=== PATIENT | male | born 1940 | race Caucasian/White ===

== ENCOUNTER → 2019-05-16 | Outpatient (CLI) | payer OTHER, MEDICARE ==
[~2019-05-16] VITALS: Ht 175.3 cm; Wt 84.8 kg
[~2019-05-16] MED LIST: APIX5TAB PO; ASPI-404 PO; ATOR40TA52 PO; DICL1GEL35 TD; DOCU250C3 PO; FLUT50SP31; GABA100C9 PO; INSU100I24 SC; INSUINJ2 SC; KETO0.4S LEFTEYE; LIDO5CRE14 EX; LORA-622 PO; LOSA25TA38 PO; METO100T87 PO; OMEG120015 PO; OXYC-904 PO; PANT40TA2 PO; PRED1SUS4 LEFTEYE; SILD100T57 PO; SOTA80TA PO
[2019-05-16 15:42] LABS: Basophils # (auto) 0.1 uL; Basophils % (auto) 0.9 % (0.0-2.0); Eosinophils # (auto) 0.1 uL; Eosinophils % (auto) 1.4 % (0.0-7.0); Hematocrit 42.3 % (41.0-53.0); Hemoglobin 14.4 g/dL (13.5-17.5); Lymphocytes # (auto) 2.8 uL; Lymphocytes % (auto) 31.6 % (10.0-50.0); Mean Corpuscular Hemoglobin 31.3 pg (28.0-32.0); Mean Corpuscular Hgb Conc. 33.9 g/dL (32.0-36.0); Mean Corpuscular Volume 92.3 fL (80.0-100.0); Monocytes # (auto) 0.5 uL; Monocytes % (auto) 5.2 % (0.0-12.0); Neutrophils # (auto) 5.3 uL; Neutrophils % (auto) 60.9 % (37.0-80.0); Platelet Count (auto) 184 10^3/uL (140-450); Red Blood Cells 4.59 10^6/uL (4.5-5.90); Red Cell Distribution Width 13.9 % (11.8-14.3); White Blood Cell 8.7 10^3/uL (4.4-10.8)
[2019-05-16 15:52] LABS: INR 1.13 (0.9-1.15); Partial Thromboplastin Time 26.8 sec (23.64-32.05)
[2019-05-16 15:58] LABS: Calcium 8.5 mg/dL (8.5-10.1); Potassium 3.7 mmol/L (3.5-5.1)
[2019-05-16 16:00] LABS: Urine Bacteria NONE SEEN /hpf (None Seen); Urine Blood Negative /uL (Negative); Urine Specific Gravity 1.035 (1.001-1.035); Urine WBC 1 /hpf (0 - 3)
[2019-05-16 16:04] LABS: BUN/Creatinine Ratio 15.8
[2019-05-16 16:05] LABS: Albumin 3.9 g/dL (3.4-5.0); Bilirubin, Total 0.5 mg/dL (0.2-1.0); Total Protein 7.1 g/dL (6.4-8.2)
== END | disposition home or self-care (01) ==
LOC: SUR 14:36 → EDSTATUS 05-19 07:00
PROVIDERS: ATTEND Anesthesiology Pain Medicine
DX: M48.062 Spinal stenosis, lumbar region with neurogenic claudication (principal); I50.9 Heart failure, unspecified
CPT/HCPCS: 36415; 80053; 81001; 85025; 85610; 85730

== ENCOUNTER 2021-07-23 19:34 | Emergency (ER) | payer OTHER, MEDICARE ==
[~2021-07-23] VITALS: Ht 175.3 cm; Wt 83.9 kg
[~2021-07-23 19:34] MED LIST changes: -ASPI-404 PO; +ASPI-543 PO; -DICL1GEL35 TD; +DICL1GEL50 TD; -DOCU250C3 PO; +DOCU250C4 PO
[2021-07-23] MEDS ORDERED: SODIUM CHLORIDE 0.9% 1,000 ML IV ONE (20:30)
[2021-07-23 20:52] LABS: Basophils # (auto) 0 10 ^3/uL (0-0.2); Basophils % (auto) 0.4 % (0.0-2.0); Eosinophils # (auto) 0 10 ^3/uL (0-0.8); Hemoglobin 14.1 g/dL (13.5-17.5); Lymphocytes # (auto) 0.6 10 ^3/uL (0.4-5.4); Lymphocytes % (auto) 13.4 % (10.0-50.0); Mean Corpuscular Hemoglobin 30.9 pg (28.0-32.0); Mean Corpuscular Hgb Conc. 33.5 g/dL (32.0-36.0); Mean Corpuscular Volume 92.5 fL (80.0-100.0); Monocytes # (auto) 0.1 10 ^3/uL (0-1.3); Monocytes % (auto) 2.6 % (0.0-12.0); Neutrophils # (auto) 3.8 10 ^3/uL (1.6-8.6); Neutrophils % (auto) 83.6 % (37.0-80.0); Nucleated Red Blood Cells % 0.1 %; Red Blood Cells 4.54 10^6/uL (4.5-5.90); Red Cell Distribution Width 14.6 % (11.8-14.3); White Blood Cell 4.6 10^3/uL (4.4-10.8)
[2021-07-23 21:03] LABS: Albumin 3.8 g/dL (3.4-5.0); Calcium 8.6 mg/dL (8.5-10.1); Potassium 3.5 mmol/L (3.5-5.1)
[2021-07-23 21:08] LABS: BUN/Creatinine Ratio 16.5; Bilirubin, Total 0.9 mg/dL (0.2-1.0); Total Protein 7.5 g/dL (6.4-8.2)
[2021-07-23 22:52] VITALS: BP 122/72
== END 2021-07-23 22:36 | disposition home or self-care (01) ==
LOC: ER 19:34 → EDBD 19:34 → ER 22:36
DX: U07.1 COVID-19 (principal); R19.7 Diarrhea, unspecified; R11.2 Nausea with vomiting, unspecified; E11.9 Type 2 diabetes mellitus without complications; J44.9 Chronic obstructive pulmonary disease, unspecified; I50.9 Heart failure, unspecified; Z95.0 Presence of cardiac pacemaker; Z79.4 Long term (current) use of insulin; Z79.899 Other long term (current) drug therapy; Z88.8 Allergy status to other drugs, medicaments and biological substances
CPT/HCPCS: 36415; 71045; 80053; 83880; 84484; 85025; 93005; 96360; 99285; J7030

== ENCOUNTER 2021-07-24 23:07 | Inpatient (IN) | payer MEDICARE, OTHER ==
[~2021-07-24] VITALS: Ht 177.8 cm; Wt 80.9 kg
[2021-07-25] MEDS ORDERED: dilTIAZem 25 MG/5 ML VIAL IV ONE
[2021-07-25] MEDS ORDERED: DexAMETHasone SOD PHOS 10MG/1ML VIAL INJ IV ONE
[2021-07-25 00:37] LABS: Basophils # (auto) 0 10 ^3/uL (0-0.2); Basophils % (auto) 0.2 % (0.0-2.0); Eosinophils # (auto) 0 10 ^3/uL (0-0.8); Hematocrit 41.5 % (41.0-53.0); Hemoglobin 13.9 g/dL (13.5-17.5); Lymphocytes # (auto) 0.6 10 ^3/uL (0.4-5.4); Lymphocytes % (auto) 7.1 % (10.0-50.0); Mean Corpuscular Hgb Conc. 33.6 g/dL (32.0-36.0); Mean Corpuscular Volume 92.4 fL (80.0-100.0); Monocytes # (auto) 0.3 10 ^3/uL (0-1.3); Monocytes % (auto) 3.1 % (0.0-12.0); Neutrophils # (auto) 8.2 10 ^3/uL (1.6-8.6); Neutrophils % (auto) 89.6 % (37.0-80.0); Nucleated Red Blood Cells % 0.1 %; Red Cell Distribution Width 14.3 % (11.8-14.3); White Blood Cell 9.1 10^3/uL (4.4-10.8)
[2021-07-25 00:40] LABS: INR 1.11 (0.9-1.15); Partial Thromboplastin Time 30.6 sec (23.6-33.0)
[2021-07-25 01:07] LABS: Albumin 3.5 g/dL (3.4-5.0); Calcium 8.5 mg/dL (8.5-10.1); Potassium 3.9 mmol/L (3.5-5.1)
[2021-07-25 01:22] LABS: BUN/Creatinine Ratio 23.2; Bilirubin, Total 0.7 mg/dL (0.2-1.0); Total Protein 6.9 g/dL (6.4-8.2)
[2021-07-25] MEDS ORDERED: ONDANSETRON HCL 4 MG/2 ML VIAL IV PRN (04:30)
[2021-07-25] MEDS ORDERED: ACETAMINOPHEN 500 MG TAB PO PRN (04:30)
[2021-07-25] MEDS ORDERED: MORPHINE SULFATE INJECTION 2 MG/ML SYRG IV PRN (04:30)
[2021-07-25] MEDS ORDERED: REMDESIVIR PER PHARMACY 0 ML IV SCH (04:30)
[2021-07-25] MEDS ORDERED: NITROGLYCERIN 0.4 MG SL TAB SL PRN (04:30)
[2021-07-25] MEDS ORDERED: DEXTROSE (50%) 50ML SYRG IV PRN (04:30)
[2021-07-25] MEDS: cefTRIAXone 1GM/50ML D5W 50 ML IV SCH ×2 (06:01→09:00)
[2021-07-25 07:09] LABS: Urine Bacteria NONE SEEN /hpf (None Seen); Urine Blood 1+ /uL (Negative); Urine Specific Gravity 1.034 (1.001-1.035); Urine WBC <1 /hpf (0 - 3)
[2021-07-25] MEDS: InsuLIN REG 1unit/0.01ml Soln (100units/ml) SC SCH ×4 (07:10→21:31)
[2021-07-25] MEDS: ACCU-CHEK COMFORT CURVE STRIP VI SCH ×4 (07:14→21:38)
[2021-07-25] MEDS: ALBUTEROL SULF HFA 90MCG INH 200DOSE IN PRN ×2 (07:41→20:32)
[2021-07-25 09:00] VITALS: BP 129/70
[2021-07-25] MEDS ORDERED: ASCORBIC ACID 500 MG TAB PO SCH (10:00)
[2021-07-25] MEDS ORDERED: ZINC SULFATE 220mg CAP or TAB PO SCH (10:00)
[2021-07-25] MEDS: DexAMETHasone SOD PHOS 10MG/1ML VIAL INJ IV SCH (10:15)
[2021-07-25] MEDS: ZINC SULFATE 220mg CAP or TAB PO SCH (10:15)
[2021-07-25] MEDS: ASPirin 81 mg TAB PO SCH (10:15)
[2021-07-25] MEDS: AZITHROMYCIN 500MG/ 250ML 250 ML IV SCH (10:15)
[2021-07-25] MEDS: MULTIPLE VITAMIN TAB PO SCH (10:17)
[2021-07-25] MEDS: SOTALOL HCL 80 MG TAB PO SCH ×2 (10:17→21:39)
[2021-07-25] MEDS: APIXABAN 5 MG TAB PO SCH ×2 (10:17→21:39)
[2021-07-25] MEDS: ASCORBIC ACID 1,000 MG TAB PO SCH (10:17)
[2021-07-25] MEDS: LOSARTAN POTASSIUM 25 MG TAB PO SCH (10:17)
[2021-07-25] MEDS: CHOLECALCIFEROL (VITD3) 2,000 UNIT CAP/TAB PO SCH (10:18)
[2021-07-25] MEDS ORDERED: FUROSEMIDE 20 MG/2 ML VIAL IV ONE (10:30)
[2021-07-25] MEDS ORDERED: REMDESIVIR 200 MG in NS 210ml LOADING DOSE ADULT IV ONE (12:00)
[2021-07-25] MEDS: PANTOPRAZOLE 40 MG TAB PO SCH ×2 (12:19→21:40)
[2021-07-25 13:00] VITALS: BP 126/72
[2021-07-25 17:00] VITALS: BP 125/70
[2021-07-25] MEDS: FUROSEMIDE 40 MG/4 ML VIAL IV SCH (17:57)
[2021-07-25] MEDS: ATORVASTATIN 20 MG TAB PO SCH (21:39)
[2021-07-25] MEDS: DRONEDARONE HCL 400 MG TAB PO SCH (21:40)
[2021-07-25 22:23] VITALS: BP 117/70
[2021-07-26 05:23] VITALS: BP 136/76
[2021-07-26] MEDS: InsuLIN REG 1unit/0.01ml Soln (100units/ml) SC SCH ×4 (06:06→22:02)
[2021-07-26] MEDS: ACCU-CHEK COMFORT CURVE STRIP VI SCH ×4 (06:07→21:51)
[2021-07-26] MEDS: FUROSEMIDE 40 MG/4 ML VIAL IV SCH (06:37)
[2021-07-26 07:32] LABS: Basophils # (auto) 0 10 ^3/uL (0-0.2); Basophils % (auto) 0.1 % (0.0-2.0); Eosinophils # (auto) 0 10 ^3/uL (0-0.8); Hematocrit 42.8 % (41.0-53.0); Hemoglobin 14.6 g/dL (13.5-17.5); Lymphocytes # (auto) 0.7 10 ^3/uL (0.4-5.4); Lymphocytes % (auto) 5.8 % (10.0-50.0); Mean Corpuscular Hemoglobin 30.9 pg (28.0-32.0); Mean Corpuscular Volume 90.7 fL (80.0-100.0); Monocytes # (auto) 0.4 10 ^3/uL (0-1.3); Monocytes % (auto) 3.4 % (0.0-12.0); Neutrophils # (auto) 11.6 10 ^3/uL (1.6-8.6); Neutrophils % (auto) 90.7 % (37.0-80.0); Nucleated Red Blood Cells % 0.1 %; Red Blood Cells 4.72 10^6/uL (4.5-5.90); Red Cell Distribution Width 14.5 % (11.8-14.3); White Blood Cell 12.8 10^3/uL (4.4-10.8)
[2021-07-26 07:50] LABS: Albumin 3.4 g/dL (3.4-5.0); BUN/Creatinine Ratio 41.2; Calcium 8.6 mg/dL (8.5-10.1); Potassium 3.5 mmol/L (3.5-5.1)
[2021-07-26 07:54] LABS: Bilirubin, Total 0.9 mg/dL (0.2-1.0); Total Protein 7.3 g/dL (6.4-8.2)
[2021-07-26] MEDS: cefTRIAXone 1GM/50ML D5W 50 ML IV SCH (08:50)
[2021-07-26 09:00] VITALS: BP 112/67
[2021-07-26] MEDS: ALBUTEROL SULF HFA 90MCG INH 200DOSE IN PRN (09:59)
[2021-07-26] MEDS ORDERED: FUROSEMIDE 20 MG/2 ML VIAL IV SCH (10:00)
[2021-07-26] MEDS ORDERED: DAPAGLIFLOZIN 5 MG TAB PO SCH (10:00)
[2021-07-26] MEDS: DexAMETHasone SOD PHOS 10MG/1ML VIAL INJ IV SCH (10:01)
[2021-07-26] MEDS: AZITHROMYCIN 500MG/ 250ML 250 ML IV SCH (10:01)
[2021-07-26] MEDS: ZINC SULFATE 220mg CAP or TAB PO SCH (10:02)
[2021-07-26] MEDS: ASPirin 81 mg TAB PO SCH (10:02)
[2021-07-26] MEDS: SOTALOL HCL 80 MG TAB PO SCH ×2 (10:02→21:50)
[2021-07-26] MEDS: LOSARTAN POTASSIUM 25 MG TAB PO SCH (10:02)
[2021-07-26] MEDS: CHOLECALCIFEROL (VITD3) 2,000 UNIT CAP/TAB PO SCH (10:03)
[2021-07-26] MEDS: ASCORBIC ACID 1,000 MG TAB PO SCH (10:03)
[2021-07-26] MEDS: APIXABAN 5 MG TAB PO SCH ×2 (10:03→21:51)
[2021-07-26] MEDS: MULTIPLE VITAMIN TAB PO SCH (10:03)
[2021-07-26] MEDS: POTASSIUM CHL 20 Meq TABLET PO SCH (10:03)
[2021-07-26] MEDS: PANTOPRAZOLE 40 MG TAB PO SCH ×2 (10:03→21:51)
[2021-07-26] MEDS: DRONEDARONE HCL 400 MG TAB PO SCH ×2 (12:11→21:51)
[2021-07-26 13:00] VITALS: BP 109/51
[2021-07-26] MEDS: REMDESIVIR 100mg 100 MG in SODIUM CHL 0.9% 230 ML IV SCH (15:35)
[2021-07-26 17:00] VITALS: BP 98/67
[2021-07-26 21:27] VITALS: BP 98/66
[2021-07-26] MEDS: ATORVASTATIN 20 MG TAB PO SCH (21:51)
[2021-07-26] MEDS ORDERED: DOXYCYCLINE 100MG/250ML 250 ML IV SCH (22:00)
[2021-07-27 05:00] VITALS: BP 96/58
[2021-07-27] MEDS: ALBUTEROL SULF HFA 90MCG INH 200DOSE IN PRN ×2 (05:49→22:46)
[2021-07-27 05:57] LABS: Potassium 3.8 mmol/L (3.5-5.1)
[2021-07-27 06:06] LABS: Albumin 2.6 g/dL (3.4-5.0); BUN/Creatinine Ratio 42.5; Bilirubin, Total 0.6 mg/dL (0.2-1.0); Calcium 8.2 mg/dL (8.5-10.1); Total Protein 5.9 g/dL (6.4-8.2)
[2021-07-27] MEDS: InsuLIN REG 1unit/0.01ml Soln (100units/ml) SC SCH ×4 (06:30→22:06)
[2021-07-27] MEDS: ACCU-CHEK COMFORT CURVE STRIP VI SCH ×4 (06:30→22:05)
[2021-07-27 09:00] VITALS: BP 100/57
[2021-07-27] MEDS: SOTALOL HCL 80 MG TAB PO SCH ×2 (10:00→22:00)
[2021-07-27] MEDS: cefTRIAXone 1GM/50ML D5W 50 ML IV SCH (10:34)
[2021-07-27] MEDS: DexAMETHasone SOD PHOS 10MG/1ML VIAL INJ IV SCH (10:34)
[2021-07-27] MEDS: ASPirin 81 mg TAB PO SCH (10:35)
[2021-07-27] MEDS: ZINC SULFATE 220mg CAP or TAB PO SCH (10:35)
[2021-07-27] MEDS: FUROSEMIDE 40 MG/4 ML VIAL IV SCH (10:35)
[2021-07-27] MEDS: MULTIPLE VITAMIN TAB PO SCH (10:36)
[2021-07-27] MEDS: DRONEDARONE HCL 400 MG TAB PO SCH ×2 (10:36→22:05)
[2021-07-27] MEDS: POTASSIUM CHL 20 Meq TABLET PO SCH (10:36)
[2021-07-27] MEDS: APIXABAN 5 MG TAB PO SCH ×2 (10:36→22:05)
[2021-07-27] MEDS: CHOLECALCIFEROL (VITD3) 2,000 UNIT CAP/TAB PO SCH (10:37)
[2021-07-27] MEDS: ASCORBIC ACID 1,000 MG TAB PO SCH (10:37)
[2021-07-27] MEDS: PANTOPRAZOLE 40 MG TAB PO SCH ×2 (10:37→22:05)
[2021-07-27 12:45] VITALS: BP 122/67
[2021-07-27] MEDS: REMDESIVIR 100mg 100 MG in SODIUM CHL 0.9% 230 ML IV SCH (16:42)
[2021-07-27 22:00] VITALS: BP 95/52
[2021-07-27] MEDS: ATORVASTATIN 20 MG TAB PO SCH (22:05)
[2021-07-28 05:00] VITALS: BP 107/64
[2021-07-28 06:07] LABS: Sodium 139 mmol/L (136-145)
[2021-07-28 06:08] LABS: Anion Gap 6 (5-15); Blood Urea Nitrogen 35 mg/dL (7-18); Carbon Dioxide 29 mmol/L (21-32); Chloride 104 mmol/L (98-107); Glucose 218 mg/dL (74-106); Potassium 4.2 mmol/L (3.5-5.1)
[2021-07-28 06:09] LABS: Alanine Aminotransferase 66 U/L (16-61); Albumin 2.8 g/dL (3.4-5.0); Alkaline Phosphatase 46 U/L (45-117); Aspartate Aminotransferase 56 U/L (15-37); BUN/Creatinine Ratio 43.2; Bilirubin, Total 0.6 mg/dL (0.2-1.0); GFR African American 118 mL/min; GFR Non-African American 97 mL/min; Total Protein 5.8 g/dL (6.4-8.2)
[2021-07-28] MEDS: InsuLIN REG 1unit/0.01ml Soln (100units/ml) SC SCH ×4 (06:28→22:20)
[2021-07-28] MEDS: ACCU-CHEK COMFORT CURVE STRIP VI SCH ×4 (06:28→22:19)
[2021-07-28] MEDS: ALBUTEROL SULF HFA 90MCG INH 200DOSE IN PRN ×2 (07:06→20:14)
[2021-07-28 09:00] VITALS: BP 123/74
[2021-07-28] MEDS: DexAMETHasone SOD PHOS 10MG/1ML VIAL INJ IV SCH (11:37)
[2021-07-28] MEDS: ASPirin 81 mg TAB PO SCH (11:39)
[2021-07-28] MEDS: FUROSEMIDE 40 MG/4 ML VIAL IV SCH (11:39)
[2021-07-28] MEDS: ZINC SULFATE 220mg CAP or TAB PO SCH (11:40)
[2021-07-28] MEDS: SOTALOL HCL 80 MG TAB PO SCH ×2 (11:41→22:18)
[2021-07-28] MEDS: POTASSIUM CHL 20 Meq TABLET PO SCH (11:41)
[2021-07-28] MEDS: APIXABAN 5 MG TAB PO SCH ×2 (11:41→22:18)
[2021-07-28] MEDS: DRONEDARONE HCL 400 MG TAB PO SCH ×2 (11:42→22:19)
[2021-07-28] MEDS: PANTOPRAZOLE 40 MG TAB PO SCH ×2 (11:42→22:19)
[2021-07-28] MEDS: ASCORBIC ACID 1,000 MG TAB PO SCH (11:42)
[2021-07-28] MEDS: MULTIPLE VITAMIN TAB PO SCH (11:42)
[2021-07-28] MEDS: CHOLECALCIFEROL (VITD3) 2,000 UNIT CAP/TAB PO SCH (11:43)
[2021-07-28] MEDS: cefTRIAXone 1GM/50ML D5W 50 ML IV SCH (12:14)
[2021-07-28 13:00] VITALS: BP 116/66
[2021-07-28] MEDS: REMDESIVIR 100mg 100 MG in SODIUM CHL 0.9% 230 ML IV SCH (16:02)
[2021-07-28 17:00] VITALS: BP 117/70
[2021-07-28 22:00] VITALS: BP 121/63
[2021-07-28] MEDS: ATORVASTATIN 20 MG TAB PO SCH (22:19)
[2021-07-29 05:00] VITALS: BP 114/77
[2021-07-29] MEDS: ACCU-CHEK COMFORT CURVE STRIP VI SCH ×4 (06:27→22:53)
[2021-07-29] MEDS: InsuLIN REG 1unit/0.01ml Soln (100units/ml) SC SCH ×4 (06:28→23:04)
[2021-07-29] MEDS: ALBUTEROL SULF HFA 90MCG INH 200DOSE IN PRN ×2 (06:42→19:43)
[2021-07-29 06:47] LABS: Basophils # (auto) 0 10 ^3/uL (0-0.2); Basophils % (auto) 0.2 % (0.0-2.0); Eosinophils # (auto) 0 10 ^3/uL (0-0.8); Eosinophils % (auto) 0.1 % (0.0-7.0); Hematocrit 41.7 % (41.0-53.0); Hemoglobin 14.1 g/dL (13.5-17.5); Lymphocytes # (auto) 0.9 10 ^3/uL (0.4-5.4); Lymphocytes % (auto) 9.5 % (10.0-50.0); Mean Corpuscular Hgb Conc. 33.8 g/dL (32.0-36.0); Mean Corpuscular Volume 91.6 fL (80.0-100.0); Monocytes # (auto) 0.6 10 ^3/uL (0-1.3); Neutrophils # (auto) 7.9 10 ^3/uL (1.6-8.6); Neutrophils % (auto) 84.2 % (37.0-80.0); Red Blood Cells 4.55 10^6/uL (4.5-5.90); Red Cell Distribution Width 14.2 % (11.8-14.3); White Blood Cell 9.3 10^3/uL (4.4-10.8)
[2021-07-29 07:32] LABS: BUN/Creatinine Ratio 52.4; Bilirubin, Total 0.7 mg/dL (0.2-1.0); CRP High Sensitivity 1.82 mg/dL (< 0.3); Calcium 8.5 mg/dL (8.5-10.1); Total Protein 6.4 g/dL (6.4-8.2)
[2021-07-29 08:00] VITALS: BP 119/74
[2021-07-29] MEDS: cefTRIAXone 1GM/50ML D5W 50 ML IV SCH (10:17)
[2021-07-29] MEDS: DexAMETHasone SOD PHOS 10MG/1ML VIAL INJ IV SCH (10:18)
[2021-07-29] MEDS: SOTALOL HCL 80 MG TAB PO SCH ×2 (10:18→22:52)
[2021-07-29] MEDS: FUROSEMIDE 40 MG/4 ML VIAL IV SCH (10:18)
[2021-07-29] MEDS: POTASSIUM CHL 20 Meq TABLET PO SCH (10:19)
[2021-07-29] MEDS: DRONEDARONE HCL 400 MG TAB PO SCH ×2 (10:19→22:52)
[2021-07-29] MEDS: APIXABAN 5 MG TAB PO SCH ×2 (10:19→22:52)
[2021-07-29] MEDS: MULTIPLE VITAMIN TAB PO SCH (10:19)
[2021-07-29] MEDS: CHOLECALCIFEROL (VITD3) 2,000 UNIT CAP/TAB PO SCH (10:19)
[2021-07-29] MEDS: PANTOPRAZOLE 40 MG TAB PO SCH ×2 (10:19→22:52)
[2021-07-29 12:00] VITALS: BP 118/75
[2021-07-29] MEDS: REMDESIVIR 100mg 100 MG in SODIUM CHL 0.9% 230 ML IV SCH (14:23)
[2021-07-29 16:00] VITALS: BP 110/63
[2021-07-29 22:00] VITALS: BP 113/64
[2021-07-29] MEDS: ATORVASTATIN 20 MG TAB PO SCH (22:52)
[2021-07-30 05:00] VITALS: BP 116/69
[2021-07-30] MEDS: ACCU-CHEK COMFORT CURVE STRIP VI SCH ×3 (06:08→17:00)
[2021-07-30] MEDS: InsuLIN REG 1unit/0.01ml Soln (100units/ml) SC SCH ×3 (06:35→18:27)
[2021-07-30 06:52] LABS: Potassium 4.2 mmol/L (3.5-5.1)
[2021-07-30 07:10] LABS: Albumin 2.5 g/dL (3.4-5.0); Bilirubin, Direct 0.2 mg/dL (0-0.2); Bilirubin, Total 0.6 mg/dL (0.2-1.0); Total Protein 5.5 g/dL (6.4-8.2)
[2021-07-30 07:17] LABS: Cholesterol 63 mg/dL (< 200); HDL Cholesterol 26 mg/dL (40-59); LDL Cholesterol 27 mg/dL (< 100); Triglycerides 109 mg/dL (< 150)
[2021-07-30] MEDS: ALBUTEROL SULF HFA 90MCG INH 200DOSE IN PRN (08:22)
[2021-07-30 09:00] VITALS: BP_SYST 112; BP_SYST 135; BP_DIAS 68
[2021-07-30] MEDS: cefTRIAXone 1GM/50ML D5W 50 ML IV SCH (09:48)
[2021-07-30] MEDS: DexAMETHasone SOD PHOS 10MG/1ML VIAL INJ IV SCH (09:48)
[2021-07-30] MEDS: FUROSEMIDE 40 MG/4 ML VIAL IV SCH (09:48)
[2021-07-30] MEDS: APIXABAN 5 MG TAB PO SCH (09:49)
[2021-07-30] MEDS: SOTALOL HCL 80 MG TAB PO SCH (09:49)
[2021-07-30] MEDS: POTASSIUM CHL 20 Meq TABLET PO SCH (09:49)
[2021-07-30] MEDS: DRONEDARONE HCL 400 MG TAB PO SCH (09:49)
[2021-07-30] MEDS: MULTIPLE VITAMIN TAB PO SCH (09:50)
[2021-07-30] MEDS: CHOLECALCIFEROL (VITD3) 2,000 UNIT CAP/TAB PO SCH (09:50)
[2021-07-30] MEDS: PANTOPRAZOLE 40 MG TAB PO SCH (09:50)
[2021-07-30 13:00] VITALS: BP 112/68
[2021-07-30] MEDS ORDERED: ZINC220T6 PO (13:14)
[2021-07-30] MEDS ORDERED: CHOL20007 PO (13:14)
[2021-07-30] MEDS ORDERED: ALBUAER3 IN (13:14)
[2021-07-30] MEDS ORDERED: DOXY-286 PO (13:14)
[2021-07-30] MEDS ORDERED: ASCO500T11 PO (13:14)
[2021-07-30] MEDS ORDERED: DEX4T PO (13:14)
[2021-07-30 19:00] VITALS: BP 129/69
== END 2021-07-30 22:30 | disposition home health service (06) | DRG 177 ==
LOC: ER 23:07 → EDBD 23:07 → TELE 07-25 04:30 → TELE-EAST 07-25 06:35
PROVIDERS: ADMIT Nurse Practitioner; ATTEND Internal Medicine
PROC: XW033E5 Introduction of Remdesivir Anti-infective into Peripheral Vein, Percutaneous Approach, New Technology Group 5 (ICD-10-PCS; principal; 2021-07-25)
DX: U07.1 COVID-19 (principal); J12.82 Pneumonia due to coronavirus disease 2019; I21.A1 Myocardial infarction type 2; J96.01 Acute respiratory failure with hypoxia; I50.43 Acute on chronic combined systolic (congestive) and diastolic (congestive) heart failure; I48.20 Chronic atrial fibrillation, unspecified; J44.0 Chronic obstructive pulmonary disease with (acute) lower respiratory infection; E11.9 Type 2 diabetes mellitus without complications; E78.5 Hyperlipidemia, unspecified; I25.5 Ischemic cardiomyopathy; I11.0 Hypertensive heart disease with heart failure; I25.10 Atherosclerotic heart disease of native coronary artery without angina pectoris; Z79.01 Long term (current) use of anticoagulants; Z79.4 Long term (current) use of insulin; Z95.5 Presence of coronary angioplasty implant and graft; Z95.810 Presence of automatic (implantable) cardiac defibrillator; I48.91 Unspecified atrial fibrillation
CPT/HCPCS: 36415; 36600; 71045; 80053; 80061; 80076; 81001; 82306; 82728; 82805; 82962; 83605; 83615; 83735; 83880; 84132; 84484; 85025; 85379; 85610; 85730; 86141; 87081; 87426; 93005; 93306; 94640; 96365; 96375; 97163; G0378; J0696; J1100; J1815; J2405

== ENCOUNTER 2024-07-27 13:09 | Emergency (ER) | payer OTHER, MEDICAID ==
[~2024-07-27] VITALS: Ht 177.8 cm; Wt 95.0 kg
[~2024-07-27 13:09] MED LIST changes: +ALBUAER3 IN; +ASCO500T11 PO; +DEX4T PO; -DICL1GEL50 TD; +DICL1GEL73 TD; +DOCU250C12 PO; -DOCU250C4 PO; +DOXY-286 PO; +GABA-1308 PO; -GABA100C9 PO; +LOSA-533 PO; -LOSA25TA38 PO; -OXYC-904 PO; +OXYC-998 PO; +SILD100T PO; -SILD100T57 PO; +ZINC220T6 PO
--- NOTE | 2024-07-27 13:20 | ECG ---
[facility] Test Date: 2024-07-27 Test Time: 13:07:02 Pat Name: SVEN VOSS Department: er Room: Gender: M Ms Access Database Developer: gp : 1940 Requested By: ALVARO PRIDE Order Number: [id number] Reading MD: Jesse Damon Measurements Intervals [place] Rate: 61 P: -53 WA: 299 QRS: 38 QRSD: 110 T: 64 QT: 448 QTc: 452 Interpretive Statements Sinus or ectopic atrial rhythm Prolonged WA interval Low voltage, extremity and precordial leads Anteroseptal infarct, old Electronically Signed On 07-28-2024 12:00:16 PST by Jesse Damon Please click the below link to view image of tracing.
--- NOTE | 2024-07-27 13:40 | ED.PDOC ---
History of Present Illness HPI Comments 84Y M with PMHx DM, COPD, CHF, and pacemaker presents to ED via EMS for chief complaint dizziness x today with SOB. Pt states he feels like he is going to "pass out" and feels like his legs are swollen. No other symptoms reported. Chief Complaint: Dizziness Time Seen by MD: 13:13 Primary Care Provider: [place] Reviewed Notes: Nurses Notes, Expedition Supervisor Notes, Medications, Allergies Allergies: Coded Allergies: Lisinopril (Verified Allergy, Unknown, 05/16/19) Metformin (Verified Allergy, Unknown, 05/16/19) Povidone Iodine (Verified Allergy, Unknown, 05/16/19) Home Meds Active Scripts Ascorbic Acid (VITAMIN C TABLET) 500 Mg Tb, 1 TAB PO DAILY, #30 TAB Prov:SARANYA NICHOLS MD 07/30/21 Albuterol Sulfate (VENTOLIN MDI) 90 Mcg Ih, 90 MCG IN Q6HP PRN for 30 Days, #1 INH Prov:SARANYA NICHOLS MD 07/30/21 Zinc Sulfate (Zinc Sulfate) 220 Mg Tab, 220 MG PO DAILY for 14 Days, #14 TAB Prov:SARANYA NICHOLS MD 07/30/21 Dexamethasone (Decadron) 4 Mg Tb, 1 TAB PO DAILY, #8 TAB Decadron 4mg po daily for 5 days followed by 2mg po daily for 5 days Prov:SARANYA NICHOLS MD 07/30/21 Doxycycline Hyclate (DOXYCYCLINE HYCLATE) 100 Mg Tab, 1 TAB PO BID for 5 Days, #10 TAB Prov:SARANYA NICHOLS MD 07/30/21 Reported Medications Sildenafil Citrate (Viagra) 100 Mg Tab, 1 TAB PO DAILYP, #6 TAB 11 Refills 05/16/19 Fish Oil (Fish Oil) 1,200 Mg Cap, 1200 MG PO DAILY, CAP 05/16/19 Aspirin (Aspir-Low) 81 Mg Tab, 81 MG PO DAILY for 30 Days, MG 05/16/19 Sotalol Hcl (Sotalol Hcl) 80 Mg Tab, 1 TAB PO BID, #60 TAB 5 Refills 05/16/19 Prednisolone Acetate (Ophth) (Pred Forte) 1 % Daniela, 1 % LEFTEYE QID, ML 05/16/19 Pantoprazole Sodium Sesquihydr (Protonix) 40 Mg Tab, 40 MG PO DAILY, #30 TAB 05/16/19 Oxycodone HCl (Oxycodone Hydrochloride) 10 Mg Tab, 10 MG PO Q6HP PRN for SEVERE PAIN (7-10 PAIN SCALE), TAB 05/16/19 Metoprolol Succinate (Toprol Xl) 100 Mg Tab, 1 TAB PO BID, #30 TAB 5 Refills 05/16/19 Losartan Potassium (Losartan Potassium) 25 Mg Tab, 3 TAB PO DAILY for 30 Days, MG 05/16/19 Loratadine (Claritin) 10 Mg Tab, 1 TAB PO DAILY, #30 TAB 5 Refills 05/16/19 Lidocaine (Anorectal) (Lidocaine 5%) 5 % Cre, 5 % EX BID, CRE 05/16/19 Ketorolac Tromethamine (Ophth) (Acular Ls) 0.4 % Rupa, 1 DROP LEFTEYE QID, #5 ML 1 Refill 05/16/19 Insulin Aspart (Fiasp) 100 Unit/Ml Inj, 2 UNIT SC BS, INJ 05/16/19 Insulin NPH (Human) (Isophane) (Humulin N) 100 Unit/Ml Inj, 50 UNIT SC QPM, INJ 05/16/19 Insulin NPH (Human) (Isophane) (Humulin N) 100 Unit/Ml Inj, 60 UNIT SC QAM, INJ 05/16/19 Gabapentin (Gabapentin) 100 Mg Cap, 2 CAP PO BID for 30 Days, MG 05/16/19 Fluticasone Propionate (Nasal) (Fluticasone Propionate Na) 50 Mcg/Act Spr, 50 MCG NA DAILY, SPR 05/16/19 Docusate Sodium (Docusate Sodium) 250 Mg Cap, 250 MG PO BID, CAP 05/16/19 Diclofenac Sodium (Topical) (Diclofenac Sodium) 1 % Gel, 1 % TD PRN, GEL 05/16/19 Atorvastatin Calcium (ATORVASTATIN CALCIUM) 40 Mg Tab, 1 TAB PO DAILY, #30 TAB 5 Refills 05/16/19 Apixaban Base (ELIQUIS) 5 Mg Tab, 5 MG PO BID, TAB 05/16/19 Information Source: Patient, Emergency Med Personnel Mode of Arrival: EMS Severity: Mild Timing: Hours Duration: Since onset Prehospital treatment: Accucheck (134) Past Medical History PAST MEDICAL HISTORY: CHF, COPD, DM Surgical History: Pacemaker Family History Family History: Reviewed,noncontributory to illness Social History Smoker: Non-Smoker Alcohol: Denies ETOH Use Drugs: Denies Drug Use Lives In: Home Constitutional: denies: chills, diaphoresis, fatigue, fever, malaise, sweats, weakness, others EENTM: denies: blurred vision, double vision, ear bleeding, ear discharge, ear drainage, ear pain, ear ringing, eye pain, eye redness, hearing loss, mouth pain, mouth swelling, nasal discharge, nose bleeding, nose congestion, nose pain, photophobia, tearing, throat pain, throat swelling, voice changes, others Respiratory: reports: shortness of breath; denies: cough, hemoptysis, orthopnea, SOB at rest, SOB with excertion, stridor, wheezing, others Cardiovascular: reports: edema; denies: chest pain, dizzy spells, diaphoresis, Dyspnea on exertion, irregular heart beat, left arm pain, lightheadedness, palpitations, PND, syncope, others Gastrointestinal: denies: abdomen distended, abdominal pain, blood streaked bowels, constipated, diarrhea, dysphagia, difficulty swallowing, hematemesis, melena, nausea, poor appetite, poor fluid intake, rectal bleeding, rectal pain, vomiting, others Genitourinary: denies: burning, dysuria, flank pain, frequency, hematuria, incontinence, penile discharge, penile sore, pain, testicle pain, testicle swell ing, urgency, others Neurological: reports: dizziness; denies: fainting, headache, left sided numbness, left sided weakness, numbness, paresthesia, pre-existing deficit, right sided numbness, right sided weakness, seizure, speech problems, tingling, tremors, weakness, others Musculoskeletal: denies: back pain, gout, joint pain, joint swelling, muscle pain, muscle stiffness, neck pain, others Integumetry: denies: bruises, change in color, change in hair/nails, dryness, laceration, lesions, lumps, rash, wounds, others Allergic/Immunocompromised: denies: Difficulty Healing, Frequent Infections, Hives, Itching, others Hematologic/Lymphatic: denies: anemia, blood clots, easy bleeding, easy bruising, swollen glands, others Endocrine: denies: excessive hunger, excessive sweating, excessive thirst, excessive urination, flushing, intolerance to cold, intolerance to heat, unexplained weight gain, unexplained weight loss, others Psychiatric: denies: anxiety, bipolar disorder, depression, hopeless, panic disorder, schizophrenia, sleepless, suicidal, others All Other Systems: Reviewed and Negative Physical Exam General Appearance: No Apparent Distress, Normal HEENT: Normal ENT Inspection, Pharynx Normal, TMs Normal Neck: Full Range of Motion, Non-Tender, Normal, Normal Inspection Respiratory: Chest Non-Tender, Crackles (bilateral) Cardiovascular: No JVD, No Murmur, No Gallop, Normal Peripheral Pulses, Regular Rate/Rhythm Breast Exam: Deferred Gastrointestinal: No Organomegaly, Non Tender, No Pulsatile Mass, Normal Bowel Sounds, Soft Genitalia: Deferred Pelvic: Deferred Rectal: Deferred Extremities: Leg edema (1+ pitting edema), Normal capillary refill, Normal inspection, Normal range of motion, Non-tender Musculoskeletal : Apperance: Normal Neurologic: Alert, dietitian assistant II-XII nml as Tested, No Motor Deficits, Normal Affect, Normal Mood, No Sensory Deficits Cerebellar Function: NOT DONE Reflexes: NOT DONE Skin: Dry, Normal Color, Warm Lymphatic: No Adenopathy Was a procedure done? Was a procedure done?: No Differential Dx Considerations may include: CHF exacerbation, urinary tract infection, pneumonia, sepsis X-Ray, Labs, Meds, VS Vital Signs Date Time Temp Pulse Resp B/P (MAP) Pulse Ox O2 Delivery O2 Flow Rate FiO2 07/27/24 14:50 59 18 92 Room Air* 0 21 07/27/24 14:25 59 18 97/71 (80) 92 07/27/24 14:25 59 18 92 Room Air 07/27/24 13:18 61 07/27/24 13:12 60 18 109/72 (84) 99 Lab Test 07/27/24 14:56 07/27/24 14:49 07/27/24 13:47 07/27/24 13:14 Range/Units Urine Color Colorless Yellow Urine Clarity Ex.turbid Clear Urine pH 5.5 5.0-9.0 Urine Specific [place] 1.026 1.001-1.035 Urine Protein 1+ H Negative Urine Ketones Negative Negative Urine Blood 3+ H Negative /uL Urine Nitrite Negative Negative Urine Bilirubin Negative Negative Urine Urobilinogen Normal Negative mg/dL Urine Leukocyte Esterase 3+ Negative /uL Urine RBC 469 0 - 3 /hpf Urine WBC Clumps Present None Seen /hpf Urine Microscopic WBC 1857 H 0-3 /HPF Urine Squamous Epithelial Cells Few <5 /hpf Urine Bacteria Few H None Seen /hpf Urine Yeast (Budding) Few None Seen /hpf Urine Glucose 4+ H Normal mg/dL Troponin I High Sensitivity 6 7 </=54 ng/L White Blood Count 11.7 H 4.4-10.8 10^3/uL Red Blood Count 5.66 4.5-5.90 10^6/uL Hemoglobin 16.6 13.5-17.5 g/dL Hematocrit 51.5 41.0-53.0 % Mean Corpuscular Volume 90.9 80.0-100.0 fL Mean Corpuscular Hemoglobin 29.4 28.0-32.0 pg Mean Corpuscular Hemoglobin Concent 32.3 32.0-36.0 g/dL Red Cell Distribution Width 14.0 11.8-14.3 % Platelet Count 228 140-450 10^3/uL Mean Platelet Volume 8.1 6.9-10.8 fL Neutrophils (%) (Auto) 71.1 37.0-80.0 % Lymphocytes (%) (Auto) 20.5 10.0-50.0 % Monocytes (%) (Auto) 5.6 0.0-12.0 % Eosinophils (%) (Auto) 1.8 0.0-7.0 % Basophils (%) (Auto) 1.0 0.0-2.0 % Neutrophils # (Auto) 8.3 1.6-8.6 10 ^3/uL Lymphocytes # (Auto) 2.4 0.4-5.4 10 ^3/uL Monocytes # (Auto) 0.7 0-1.3 10 ^3/uL Eosinophils # (Auto) 0.2 0-0.8 10 ^3/uL Basophils # (Auto) 0.1 0-0.2 10 ^3/uL Nucleated Red Blood Cells 0.0 % Sodium Level 136 136-145 mmol/L Potassium Level 4.2 3.5-5.1 mmol/L Chloride Level 98 98-107 mmol/L Carbon Dioxide Level 28 20-31 mmol/L Anion Gap 10 5-15 Blood Urea Nitrogen 18 9-23 mg/dL Creatinine 1.25 0.700-1.30 mg/dL Glomerular Filtration Rate Calc 57 >90 mL/min BUN/Creatinine Ratio 14.4 10.0-20.0 Serum Glucose 214 H 74-106 mg/dL Calcium Level 10.0 8.7-10.4 mg/dL B-Type Natriuretic Peptide 222.67 0-100 pg/mL POC Glucose 187 H 70-106 mg/dl [address] [address] Ph: [phone] DIAGNOSTIC IMAGING Diagnostic Imaging Report : [id number] Signed PATIENT: SVEN VOSS ACCT: [id number] UNIT: [id number] : 1940 LOC: ER ROOM / BED: / AGE / SEX: 84 / M ADM STATUS: REG ER SERVICE 16 ORDERING PHYSICIAN: ALVARO PRIDE MD PROCEDURE(s): CXRP - CHEST PORTABLE REASON: sob ORDER NUMBER(s): [id number], ACCESSION NUMBER(s): [id number] CHEST RADIOGRAPH Indication: sob Technique: Single frontal view of the chest was obtained Comparison: CHEST PORTABLE on DOS: 07/29/21, CHEST PORTABLE on DOS: 07/26/21, CHEST PORTABLE on DOS: 07/24/21 FINDINGS: Lines and Tubes: Dual-chamber pacemaker with pulse generator over the left chest. Unchanged from 07/29/2021 Lungs: No focal consolidation. Pleura: No effusion. No pneumothorax. Cardiomediastinal contours: Unremarkable Bones: No acute osseous abnormality. IMPRESSION: 1. No significant change from 07/29/2021 HS:Y . ATED BY: VSEN LARES Jr., DO DICTATED DATE/TIME: 07/27/241403 SIGNED BY: SVEN LARES Jr., SIGNED DATE/TIME: 07/27/241403 CC: Time of 1ST Reevaluation: 13:43 Reevaluation 1ST: Unchanged Patient Education/Counseling: Diagnosis, Treatment Family Education/Counseling: No Family Present Departure 1 Departure Time of Disposition: 16:15 (Patient with near-syncope in concerning for sepsis. We will empirically cover patient with antibiotics and the patient for further workup we will not give the full fluid bolus as the patient has an element of CHF.) Impression: Primary Impression: Sepsis Qualified Codes: A41.9 - Sepsis, unspecified organism; R65.20 - Severe sepsis without septic shock; G93.41 - Metabolic encephalopathy Additional Impressions: Near syncope Acute on chronic systolic CHF (congestive heart failure) Complicated UTI (urinary tract infection) Disposition: ADMITTED INPATIENT Admit to: Med Surg Condition: Serious Critical Care Note Critical Care Time?: Yes Critical care comment: Sepsis Authorized and Performed by: Alvaro Pride MD Total critical care time: Approximately 38 minutes Due to a high probability of clinically significant, life threatening deterioration, the patient required my highest level of preparedness to intervene emergently and I personally spent this critical care time directly and personally managing the patient. This critical care time included obtaining a history; examining the patient; pulse oximetry; ordering and review of studies; arranging urgent treatment with development of a management plan; evaluation of patient's response to treatment; frequent reassessment; and, discussions with other providers. This critical care time was performed to assess and manage the high probability of imminent, life-threatening deterioration that could result in multi-organ failure. It was exclusive of separately billable procedures and treating other patients and teaching time. Please see my other sections and the rest of the note for further information on patient assessment and treatment. Stability Stability form required: No Heart Score Heart Score: Heart Score Response (Comments) Value History N/A 0 EKG N/A 0 Age N/A 0 Risk Factors N/A 0 Troponin N/A 0 Total 0 I personally scribed for ALVARO PRIDE MD ([email or web address]) on 07/27/24 at 13:40. Electronically submitted by Amairani Al ([employer]). I personally scribed for ALVARO PRIDE MD ([email or web address]) on 07/27/24 at 14:10. Electronically submitted by Amairani Al ([employer]). ALVARO PRIDE MD Jul 27, 2024 13:40
[2024-07-27 14:00] LABS: Basophils # (auto) 0.1 10 ^3/uL (0-0.2); Eosinophils # (auto) 0.2 10 ^3/uL (0-0.8); Eosinophils % (auto) 1.8 % (0.0-7.0); Hematocrit 51.5 % (41.0-53.0); Hemoglobin 16.6 g/dL (13.5-17.5); Lymphocytes # (auto) 2.4 10 ^3/uL (0.4-5.4); Lymphocytes % (auto) 20.5 % (10.0-50.0); Mean Corpuscular Hemoglobin 29.4 pg (28.0-32.0); Mean Corpuscular Hgb Conc. 32.3 g/dL (32.0-36.0); Mean Corpuscular Volume 90.9 fL (80.0-100.0); Monocytes # (auto) 0.7 10 ^3/uL (0-1.3); Monocytes % (auto) 5.6 % (0.0-12.0); Neutrophils # (auto) 8.3 10 ^3/uL (1.6-8.6); Neutrophils % (auto) 71.1 % (37.0-80.0); Platelet Count (auto) 228 10^3/uL (140-450); Red Blood Cells 5.66 10^6/uL (4.5-5.90); White Blood Cell 11.7 10^3/uL (4.4-10.8)
--- NOTE | 2024-07-27 14:06 | DVH ---
CHEST RADIOGRAPH Indication: sob Technique: Single frontal view of the chest was obtained Comparison: CHEST PORTABLE on DOS: 07/29/21, CHEST PORTABLE on DOS: 07/26/21, CHEST PORTABLE on DOS: 07/24/21 FINDINGS: Lines and Tubes: Dual-chamber pacemaker with pulse generator over the left chest. Unchanged from Lungs: No focal consolidation. Pleura: No effusion. No pneumothorax. Cardiomediastinal contours: Unremarkable Bones: No acute osseous abnormality. IMPRESSION: 1. No significant change from 07/29/2021 HS:Y .
[2024-07-27 14:33] LABS: Potassium 4.2 mmol/L (3.5-5.1); Sodium 136 mmol/L (136-145)
[2024-07-27 14:34] LABS: Anion Gap 10 (5-15); Carbon Dioxide 28 mmol/L (20-31)
[2024-07-27 14:39] LABS: BUN/Creatinine Ratio 14.4 (10.0-20.0); Blood Urea Nitrogen 18 mg/dL (9-23)
[2024-07-27 14:40] LABS: Chloride 98 mmol/L (98-107); Glucose 214 mg/dL (74-106)
[2024-07-27 14:50] VITALS: PULSE 59; RESP 18; O2SAT 92
[2024-07-27 15:35] LABS: Urine Bacteria FEW /hpf (None Seen); Urine Blood 3+ /uL (Negative); Urine Budding Yeast FEW /hpf (None Seen); Urine Clarity Ex.Turbid (Clear); Urine Color Colorless (Yellow); Urine Protein, UAD 1+ (Negative); Urine Specific Gravity 1.026 (1.001-1.035); Urine Squamous Epithelial Cell FEW /hpf (<5); Urine Urobilinogen Normal (Negative); Urine WBC 1857 /HPF (0-3); Urine WBC Clumps PRESENT /hpf (None Seen); Urine pH 5.5 (5.0-9.0)
[2024-07-27 17:16] LABS: Lactic Acid w/Reflex 2.5 mmol/L (0.4-2.0)
[2024-07-27] MEDS: SODIUM CHLORIDE 0.9% 1,000 ML IV ONE (17:26)
[2024-07-27] MEDS: VANCOMYCIN 1GM/250ML KIT 200 ML IV ONE (17:38)
[2024-07-27] MEDS: CEFEPIME 2GM/50ML NS 50 ML IV ONE (18:40)
[2024-07-27 20:23] VITALS: BP 122/67; PULSE 73; RESP 14; TEMP 97.3; O2SAT 94
== END 2024-07-27 21:00 | disposition left against medical advice (07) ==
LOC: EDBD 13:09 → ER 13:12
DX: A41.9 Sepsis, unspecified organism (principal); R55 Syncope and collapse; I50.23 Acute on chronic systolic (congestive) heart failure; N39.0 Urinary tract infection, site not specified; E11.9 Type 2 diabetes mellitus without complications; G93.41 Metabolic encephalopathy; J44.9 Chronic obstructive pulmonary disease, unspecified; Z79.82 Long term (current) use of aspirin; Z79.899 Other long term (current) drug therapy; Z95.0 Presence of cardiac pacemaker; Z88.8 Allergy status to other drugs, medicaments and biological substances
CPT/HCPCS: 36415; 71045; 80048; 81001; 82962; 83605; 83880; 84484; 85025; 87040; 93005; 96365; 96366; 96367; 99291; J0692; J3370; J7030